=== PATIENT | female | born 1995 | race Caucasian/White ===

== ENCOUNTER 2021-02-19 15:48 | Emergency (ER) | payer OTHER ==
[~2021-02-19] VITALS: Ht 167.6 cm; Wt 71.8 kg
[2021-02-19] MEDS ORDERED: LEXA1TAB2 PO (16:04)
--- NOTE | 2021-02-19 18:06 | REP ---
INDICATION: CP. COMPARISON: No comparison chest x-ray. TECHNIQUE: Portable upright AP chest radiograph. FINDINGS: The lungs are well inflated and free of infiltrate. Pleural angles are sharp. Heart size is normal. Pulmonary vasculature is not increased. Nipple jewelry is noted incidentally along with EKG monitoring electrodes. IMPRESSION: No active disease. <Electronically signed by Cory Sharma > 02/19/21 [id number]
[2021-02-19 19:51] VITALS: BP 135/82
--- NOTE | 2021-02-20 20:32 | ECGEPIP ---
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
== END 2021-02-19 19:59 | disposition home or self-care (01) ==
LOC: M ED 15:48 → EDBD 15:48 → M ED 19:59
DX: R07.89 Other chest pain (principal); F17.200 Nicotine dependence, unspecified, uncomplicated; Z79.899 Other long term (current) drug therapy; Z82.49 Family history of ischemic heart disease and other diseases of the circulatory system; Z88.0 Allergy status to penicillin; Z88.1 Allergy status to other antibiotic agents

== ENCOUNTER 2023-03-04 11:30 | Day surgery (SDC) | payer OTHER ==
[~2023-03-04] VITALS: Ht 167.6 cm; Wt 77.1 kg
[~2023-03-04 11:30] MED LIST: LEXA1TAB2 PO; NORE1TAB86 PO; VITMTA PO
[2023-03-04 12:12] LABS: HEMATOCRIT 45.5 % (36.0-47.0)
[2023-03-04] MEDS ORDERED: LR 1,000 ML IV SCH ×2 (12:30→15:05)
[2023-03-04] MEDS ORDERED: MIDAZOLAM INJ 2MG/2ML VIAL As Ordered ONE (13:02)
[2023-03-04] MEDS ORDERED: propofoL 200 MG/20 ML VIAL As Ordered ONE (13:02)
[2023-03-04] MEDS ORDERED: fentaNYL 100 MCG/2 ML INJECTION As Ordered ONE (13:02)
[2023-03-04] MEDS ORDERED: LIDOCAINE 2% 100MG/5ML SDV (FOR ANES.) As Ordered ONE (13:02)
[2023-03-04] MEDS ORDERED: ONDANSETRON 4MG 2ML VIAL As Ordered ONE (13:03)
[2023-03-04] MEDS ORDERED: ACETAMINOPHEN 1000MG 100ML IV BAG IV ONE (13:20)
[2023-03-04] MEDS ORDERED: KETOROLAC 30 MG/ML 1ML VIAL IV ONE (13:20)
[2023-03-04] MEDS ORDERED: ONDANSETRON 4MG 2ML VIAL IV ONE (13:40)
[2023-03-04] MEDS ORDERED: LIDOCAINE W/EPINEPHRINE 1% 20ML VIAL As Ordered ONE (14:06)
[2023-03-04] MEDS ORDERED: IODINE STRONG SOLN 15ML BTL As Ordered ONE (14:06)
[2023-03-04] MEDS ORDERED: ROCURONIUM BROMIDE 50MG/5ML VIAL As Ordered ONE (14:11)
[2023-03-04] MEDS ORDERED: SUCCINYLCHOLINE 100MG/5ML SYRINGE As Ordered ONE (14:11)
[2023-03-04] MEDS ORDERED: oxyCODONE 5MG TAB PO PRN ×2 (15:05→16:05)
[2023-03-04] MEDS ORDERED: ONDANSETRON 4MG 2ML VIAL IV PRN (15:05)
[2023-03-04] MEDS ORDERED: fentaNYL 100 MCG/2 ML INJECTION IV PRN (15:05)
[2023-03-04] MEDS ORDERED: HYDROMORPHONE HCL 0.5 MG/ 0.5 ML SYRINGE IV PRN (15:05)
[2023-03-04 16:24] VITALS: BP 138/80; TEMP 97.9; O2SAT 100
== END 2023-03-04 16:30 | disposition home or self-care (01) ==
LOC: M SDC 11:30
PROVIDERS: ATTEND Obstetrics & Gynecology
DX: D06.9 Carcinoma in situ of cervix, unspecified (principal); N87.0 Mild cervical dysplasia; N72 Inflammatory disease of cervix uteri; N88.8 Other specified noninflammatory disorders of cervix uteri; K21.9 Gastro-esophageal reflux disease without esophagitis; F41.9 Anxiety disorder, unspecified; F32.A Depression, unspecified; Z88.0 Allergy status to penicillin; Z88.1 Allergy status to other antibiotic agents; Z79.899 Other long term (current) drug therapy; Z79.3 Long term (current) use of hormonal contraceptives
CPT/HCPCS: 36415; 57522; 85014; 85018; 88307; J0131; J1100; J1885; J2250; J2405; J3010